=== PATIENT | male | born 1955 | race Caucasian/White ===

== ENCOUNTER → 2024-05-08 | Outpatient (CLI) | payer MEDICARE, MEDICAID ==
[~2024-05-08] MED LIST: ATEN50TA2 PO; FINA5TAB2 PO; LISI5TAB11 PO; METF-1156 PO; OMEP40CA4 PO; SIMV20TA22 PO; TAMS-18 PO; TRUL10IN SC; VERA240C PO
== END ==
LOC: M SOG 07:58
PROVIDERS: ATTEND Physician Assistant
DX: M25.512 Pain in left shoulder (principal); M19.012 Primary osteoarthritis, left shoulder